=== PATIENT | female | born 1985 | race Caucasian/White ===

== ENCOUNTER → 2020-03-13 10:49 | Outpatient (CLI) | payer OTHER, SELFPAY ==
[2020-03-13 10:49] VITALS: BMI 30.1
[2020-03-13 11:47] LABS: Amphetamine Urine VISTA NEGATIVE (<1000 ng/mL); Barbiturate Urine VISTA NEGATIVE (< 200 ng/mL); Benzodiazepine Urine VISTA NEGATIVE (< 200 ng/mL); Cocaine Urine VISTA NEGATIVE (< 300 ng/mL); Ecstacy Urine VISTA NEGATIVE (< 500 ng/mL); Methadone Urine VISTA NEGATIVE (< 300 ng/mL); PCP Urine VISTA NEGATIVE (< 25 ng/mL); THC Urine VISTA NEGATIVE (< 50 ng/mL); Vista UDS pH Range 6
[2020-03-13 12:41] LABS: Hepatitis C Antibody Non-Reactive (Nonreactive)
[2020-03-13 13:19] LABS: Chlamydia Trachomatis by PCR Negative (Negative); Neisserai gonorrhoeae by PCR Negative (Negative); Probe Check PASS; Sample Adequacy Control PASS; Specimen Processing Control PASS
== END ==
PROVIDERS: Obstetrics & Gynecology; Referring Provider Nurse Practitioner Women's Health; Visit Provider Nurse Practitioner Women's Health
DX: O09.00 Supervision of pregnancy with history of infertility, unspecified trimester (principal); Z3A.00 Weeks of gestation of pregnancy not specified; Z78.9 Other specified health status
CPT/HCPCS: 36415; 80307; 86803; 86850; 86900; 86901; 87086; 87088; 87491; 87591

== ENCOUNTER → 2020-05-15 10:08 | Outpatient (CLI) | payer OTHER, SELFPAY ==
[2020-05-02 09:10] VITALS: BMI 31.7
[2020-05-21 03:06] LABS: QNTFERON TB Mitogen Value > 10.00 IU/mL (.); QNTFERON TB Nil Value 0.05 IU/mL (.); QNTFERON TB1+ Ag Value 0.05 IU/mL (.); QNTFERON TB2+ Ag Value 0.05 IU/mL (.)
[2020-05-21 15:04] LABS: QNTIFERON TB Positive Criteria Negative (Negative)
== END ==
PROVIDERS: Referring Provider Obstetrics & Gynecology; Visit Provider Obstetrics & Gynecology
DX: Z02.1 Encounter for pre-employment examination (principal)
CPT/HCPCS: 36415; 86480

== ENCOUNTER → 2020-05-30 12:49 | Outpatient (CLI) | payer OTHER, SELFPAY ==
[2020-05-02 09:10] VITALS: BMI 31.7
[2020-05-30 13:14] LABS: Absolute Lymphocyte Count 1.88 X10^3/uL (0.83-4.51); Absolute Neutrophil Count 6.2 X10^3/uL (2.0-7.7); Basophil# 0.02 X10^3/uL; Basophil% 0.2 % (0-1); Eosinophil# 0.06 X10^3/uL; Eosinophils% 0.7 % (0-5); Hematocrit 34.4 % (37-47); Hemoglobin 11.2 g/dL (12.0-15.0); Lymphocyte # 1.88 X10^3/ul (4.0); Lymphocyte % 21.4 % (19-41); Mean Corp Hgb Conc 32.6 g/dL (32-36); Mean Corpuscular Hgb 30.3 pg (27.0-32.0); Monocyte# 0.56 X10^3/uL; Monocyte% 6.4 % (0-10); NRBC Flagged by Analyzer 0 % (0-5); Neutrophil # 6.18 X10^3/uL (2.7-7.7); Neutrophil % 70.2 % (47-70); Platelet Count 248 K/mm3 (150-450); RBC Distribution Width CV 12.6 % (11.6-14.6); RBC Distribution Width SD 42.9 fl (35.1-43.9); White Blood Count 8.8 K/mm3 (4.4-11.0)
[2020-05-30 13:24] LABS: Glucose Challenge Gest 1H 50g 105 mg/dL (70-140)
== END ==
PROVIDERS: Referring Provider Obstetrics & Gynecology; Visit Provider Obstetrics & Gynecology
DX: Z34.90 Encounter for supervision of normal pregnancy, unspecified, unspecified trimester (principal); Z13.1 Encounter for screening for diabetes mellitus
CPT/HCPCS: 36415; 82950; 85025

== ENCOUNTER → 2020-06-04 08:39 | Outpatient (CLI) | payer OTHER, SELFPAY ==
[2020-06-04 08:19] VITALS: BMI 32.4
[2020-06-04 08:50] LABS: Absolute Neutrophil Count 5.6 X10^3/uL (2.0-7.7); Basophil# 0.04 X10^3/uL; Basophil% 0.5 % (0-1); Eosinophil# 0.12 X10^3/uL; Eosinophils% 1.5 % (0-5); Hematocrit 34.9 % (37-47); Hemoglobin 11.2 g/dL (12.0-15.0); Lymphocyte % 21.1 % (19-41); Mean Corp Hgb Conc 32.1 g/dL (32-36); Mean Corpuscular Hgb 29.8 pg (27.0-32.0); Mean Corpuscular Volume 92.8 fL (81-99); Mean Platelet Vol. 9.7 fl (6.2-12.0); Monocyte# 0.52 X10^3/uL; Monocyte% 6.4 % (0-10); NRBC Flagged by Analyzer 0 % (0-5); Neutrophil # 5.61 X10^3/uL (2.7-7.7); Neutrophil % 69.5 % (47-70); Platelet Count 225 K/mm3 (150-450); RBC Distribution Width CV 12.6 % (11.6-14.6); RBC Distribution Width SD 42.6 fl (35.1-43.9); Red Blood Count 3.76 M/mm3 (4.2-5.4); White Blood Count 8.1 K/mm3 (4.4-11.0)
[2020-06-04 09:02] LABS: Fibrinogen 465 mg/dl (203-444)
== END ==
PROVIDERS: Referring Provider Obstetrics & Gynecology; Visit Provider Obstetrics & Gynecology
DX: O46.90 Antepartum hemorrhage, unspecified, unspecified trimester (principal); Z3A.00 Weeks of gestation of pregnancy not specified
CPT/HCPCS: 36415; 85025; 85384

== ENCOUNTER 2020-07-10 17:06 | Emergency (ER) | payer OTHER, SELFPAY ==
[2020-06-27 10:56] VITALS: BMI 46.5
[2020-07-10 17:07] VITALS: BP 141/87; PULSE 126; RESP 15; TEMP 37; O2SAT 97; BMI 34.5
--- NOTE | 2020-07-10 17:28 | EDS_ITS ---
HPI History of Present Illness Chief Complaint: Edema Informant: patient Narrative Narrative: Patient presents with right leg swelling. Started today. She noted some swelling down into the lower leg into the foot. She denies any redness, fever or pain. She is 34 weeks gestation. 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 She has no history of DVT or PE. She is complaining of no chest pain or shortness of breath. [facility] Medical History Anxiety Infertility Home Medications vit 67-iron ps 29 mg iron-folate no.1 1 mg-dha 200 mg capsule 1 cap PO DAILY #30 cap 05/02/20 [Rx Last Taken Unknown] breast pump #1 each 05/30/20 [Rx Last Taken Unknown] miscellaneous medical supply #1 each 05/30/20 [Rx Last Taken Unknown] Allergy/AdvReac Type Severity Reaction Status Date / Time No Known Allergies Allergy Verified 06/27/20 10:56 Family History Grandmother Colon cancer Heart disease Grandfather Cancer non hodgkins lymphoma Surgical History Hx of appendectomy Social History Smoking Status: Never smoker alcohol intake: never substance use type: does not use caffeine: Yes what type of physical activity do you participate in: walking frequency: 5-6 times per week seatbelt use: always do you feel safe at home: Yes 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 Constitutional ED: Denies chills or fever(s) Eyes Eyes: Denies blurry vision or change in vision ENT ENT ED: Denies ear pain, rhinorrhea or sore throat Cardiovascular Cardiovascular: Denies chest pain or palpitations Respiratory/Chest Respiratory/Chest: Denies cough, dyspnea or sputum Gastrointestinal Gastrointestinal: Denies abdominal pain, diarrhea, nausea or vomiting Genitourinary Genitourinary ED: Denies dysuria, hematuria or urinary frequency Musculoskeletal Musculoskeletal: Reports other Details: Right leg swelling Integumentary Denies change in pigmentation or rash Neurologic Neurologic: Denies headache(s), numbness or weakness Psychiatric Psychiatric: Denies anxiety or depression Endocrine Endocrinology: Denies polydipsia or polyuria EXAM Physical Exam Const Vital Signs: 07/10/20 17:07 Temperature 98.6 F Temperature Source Temporal Pulse Rate 126 H Respiratory Rate 15 Blood Pressure 141/87 H Blood Pressure Mean 105 Pulse Ox 97 Oxygen Delivery Method Room Air Positive well nourished and well developed General Appearance ED: well developed HEENT normocephalic and atraumatic Eyes PERRL Neck full ROM GI GI Narrative: Abdomen is gravid according to dates. Extremity normal to inspection Extremity Narrative: Mild edema to the right lower leg into the foot. There is no erythema. There is no warmth to the touch. She has 2+ bilateral DP pulses. General Extremety ED: Yes edema General Extremity: edema Neuro oriented x3, CN's II-XII intact bilaterally and moves all extremities Sensorium / Orientation: alert Motor Exam: strength 5/5 throughout Psych mental status grossly normal Skin Lesions: no lesions Rashes: no rashes MDM MDM MDM Narrative Medical decision making narrative: Duplex ultrasound is negative for DVT. There are no signs of infection on the leg. I do not feel she requires any antibiotics. She will keep an eye on her leg swelling and will follow up with her [employer]. Radiography Diagnostic Testing: Radiology Impression Venous Duplex 07/10/20 17:31 IMPRESSION: Normal venous Doppler ultrasound of the lower extremity. Electronically Signed: Tristan Price DO at 18:28 EDT Tel [phone], Service support , Discharge Plan Triage Chief Complaint: Edema ED Provider: Zion Osorio Dx/Rx/DC Orders Clinical Impression: Right leg swelling Instructions: ED Peripheral Edema, Unilateral Prescriptions: No Action vit 67-iron ps 29 mg iron-folate no.1 1 mg-dha 200 mg capsule 29 mg iron- 1 mg-200 mg capsule 1 cap PO DAILY Qty: 30 RF: 6 (DME) breast pump Device See Rx Instructions .ROUTE .MEDSUPPLY Qty: 1 RF: 0 (DME) miscellaneous medical supply Misc See Rx Instructions .ROUTE .MEDSUPPLY Qty: 1 RF: 0 Primary Care Provider: Care Physician,No Primary Referrals: Alycia Ennis MD [STAFF PHYSICIAN] - Care Physician,No Primary [Primary Care Provider] - Disposition Disposition: Home, self care
--- NOTE | 2020-07-10 17:31 | US_ITS ---
STUDY: VENOUS DOPPLER ULTRASOUND - RIGHT LOWER EXTREMITY REASON FOR EXAM: Female, 34 years old. RT FOOT SWELLING X 2 HOURS 34 WEEKS TECHNIQUE: Ultrasound evaluation of the deep vein system to include aguilar-scale imaging and compression was performed. Aguilar-scale imaging and Doppler sonographic evaluation, including duplex spectral analysis and qualitative color flow sonography, was performed. COMPARISON: None. FINDINGS: Common Femoral Vein: Normal compression, spontaneity and augmentation. Normal color Doppler. Common Femoral Vein/Greater Saphenous Junction: Normal compression. Femoral Proximal: Normal compression. Femoral Middle: Normal compression, spontaneity and augmentation. Normal color Doppler. Femoral Distal: Normal compression. Popliteal Vein: Normal compression, spontaneity and augmentation. Normal color Doppler. Posterior Tibial Vein: Normal compression. Peroneal Vein: Normal compression. US/Venous Duplex Imag/Limited/Uni IMPRESSION: Normal venous Doppler ultrasound of the lower extremity. Electronically Signed: Tristan Price DO at 18:28 EDT Tel [phone], Service support ,
== END 2020-07-10 19:07 | disposition home or self-care (01) ==
PROVIDERS: Emergency Provider Emergency Medicine
DX: O26.893 Other specified pregnancy related conditions, third trimester (principal); R60.0 Localized edema; Z3A.34 34 weeks gestation of pregnancy
CPT/HCPCS: 93971; 99282

== ENCOUNTER 2020-07-23 19:15 | Emergency (ER) | payer OTHER, SELFPAY ==
[2020-07-11 11:41] VITALS: BMI 34.7
[2020-07-23 19:16] VITALS: BP 129/81; PULSE 105; RESP 18; TEMP 36.1; O2SAT 98; BMI 34.7
--- NOTE | 2020-07-23 19:37 | US_ITS ---
STUDY: VENOUS DOPPLER ULTRASOUND - RIGHT LOWER EXTREMITY REASON FOR EXAM: Female, 34 years old. RT CALF PAIN WHEN STANDING AND CALF AND FOOT SWELLING- 36 WEEKS TECHNIQUE: Ultrasound evaluation of the deep vein system to include aguilar-scale imaging and compression was performed. Aguilar-scale imaging and Doppler sonographic evaluation, including duplex spectral analysis and qualitative color flow sonography, was performed. COMPARISON: None. FINDINGS: Common Femoral Vein: Normal compression with slow venous flow. Common Femoral Vein/Greater Saphenous Junction: Normal compression. Femoral Proximal: Normal compression. Femoral Middle: Normal compression, spontaneity and augmentation. Normal color Doppler. Femoral Distal: Normal compression. Popliteal Vein: Normal compression, spontaneity and augmentation. Normal color Doppler. Posterior Tibial Vein: Normal compression. Peroneal Vein: Normal compression. US/Venous Duplex Imag/Limited/Uni IMPRESSION: No deep venous thrombosis of the lower extremity. Slow flow is noted in the right common femoral vein. Electronically Signed: Tristan Price DO at 21:30 EDT Tel [phone], Service support ,
--- NOTE | 2020-07-23 19:40 | EX.ED.DYSGE1 ---
HPI History of Present Illness Chief Complaint: Lower Extremity Injury Informant: patient Narrative Narrative: 34-year-old female presents with right lower extremity swelling. She states that this has been ongoing for the past couple of weeks. She had an ultrasound approximately 2 weeks ago which showed no DVT at that time. She was advised to watch for increasing pain. She states she had more calf tenderness today. She denies fever. Denies chest pain. Denies other complaints. She is 36 weeks . Denies abdominal or pelvic cramping. Denies vaginal bleeding. PFSH [facility] Medical History Anxiety Infertility Home Medications vit 67-iron ps 29 mg iron-folate no.1 1 mg-dha 200 mg capsule 1 cap PO DAILY #30 cap 05/02/20 [Rx Last Taken Unknown] breast pump #1 each 05/30/20 [Rx Last Taken Unknown] miscellaneous medical supply #1 each 05/30/20 [Rx Last Taken Unknown] Allergy/AdvReac Type Severity Reaction Status Date / Time No Known Allergies Allergy Verified 07/11/20 11:39 Family History Grandmother Colon cancer Heart disease Grandfather Cancer non hodgkins lymphoma Surgical History Hx of appendectomy Social History Smoking Status: Never smoker alcohol intake: never substance use type: does not use caffeine: Yes what type of physical activity do you participate in: walking frequency: 5-6 times per week seatbelt use: always do you feel safe at home: Yes 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: Denies fever(s) Eyes Eyes: Denies change in vision ENT ENT ED: Denies rhinorrhea or sore throat Cardiovascular Cardiovascular: Denies chest pain or palpitations Respiratory/Chest Respiratory/Chest: Denies cough or dyspnea Gastrointestinal Gastrointestinal: Denies abdominal pain, diarrhea, nausea or vomiting Genitourinary Genitourinary ED: Denies dysuria Musculoskeletal Musculoskeletal: Reports other Details: Right lower extremity swelling and calf tenderness Integumentary Denies rash Neurologic Neurologic: Denies headache(s) Psychiatric Psychiatric: Denies suicidal thoughts EXAM Physical Exam Const Vital Signs: 07/23/20 19:16 Temperature 97 F L Temperature Source Temporal Pulse Rate 105 H Respiratory Rate 18 Blood Pressure 129/81 H Blood Pressure Mean 97 Pulse Ox 98 Oxygen Delivery Method Room Air Positive well nourished and well developed General Appearance ED: well developed HEENT Reports normocephalic and head/scalp atraumatic Eyes PERRL and EOMs intact bilaterally Neck supple General: Negative for tenderness Chest Wall inspection of chest normal Resp normal respiratory effort and clear to auscultation bilaterally Cardio regular rate and regular rhythm no CVA tenderness Extremity Extremity Narrative: Mild swelling right lower extremity with mild calf tenderness. Normal distal pulses. Neuro oriented x3 Sensorium / Orientation: alert Psych mental status grossly normal MDM MDM MDM Narrative Medical decision making narrative: Right lower extremity venous Doppler shows no DVT of the lower extremity. Slow flow is noted in the right common femoral vein. heart tones 125. Patient is resting comfortably. Discussed with [place] salesperson jewelry for Dr. Ennis. Patient will follow up in the office. She is advised to return to ED if worsening complaints. Radiography Diagnostic Testing: Radiology Impression Venous Duplex 07/23/20 19:37 IMPRESSION: No deep venous thrombosis of the lower extremity. Slow flow is noted in the right common femoral vein. Electronically Signed: Tristan Price DO at 21:30 EDT Tel [phone], Service support , Discharge Plan Triage Chief Complaint: Lower Extremity Injury ED Provider: Dede Conley Dx/Rx/DC Orders Clinical Impression: Edema, peripheral Instructions: ED Peripheral Edema, Unilateral Prescriptions: No Action vit 67-iron ps 29 mg iron-folate no.1 1 mg-dha 200 mg capsule 29 mg iron- 1 mg-200 mg capsule 1 cap PO DAILY Qty: 30 RF: 6 (DME) breast pump Device See Rx Instructions .ROUTE .MEDSUPPLY Qty: 1 RF: 0 (DME) miscellaneous medical supply Misc See Rx Instructions .ROUTE .MEDSUPPLY Qty: 1 RF: 0 Primary Care Provider: Care Physician,No Primary Referrals: Alycia Ennis MD [STAFF PHYSICIAN] - Care Physician,No Primary [Primary Care Provider] - Disposition Disposition: Home, self care
== END 2020-07-23 22:43 | disposition home or self-care (01) ==
PROVIDERS: Emergency Provider Emergency Medicine
DX: O26.893 Other specified pregnancy related conditions, third trimester (principal); R60.0 Localized edema; Z3A.36 36 weeks gestation of pregnancy
CPT/HCPCS: 93971; 99282

== ENCOUNTER → 2020-07-25 | Outpatient (CLI) | payer OTHER, SELFPAY ==
[2020-07-25 13:53] VITALS: BMI 35.3
== END | disposition home or self-care (01) ==
LOC: LABSPEC 16:31
PROVIDERS: Referring Provider Obstetrics & Gynecology; Visit Provider Obstetrics & Gynecology
DX: O09.00 Supervision of pregnancy with history of infertility, unspecified trimester (principal); Z3A.00 Weeks of gestation of pregnancy not specified
CPT/HCPCS: 87081

== ENCOUNTER → 2020-08-07 11:04 | Outpatient (CLI) | payer OTHER, SELFPAY ==
[2020-08-07 10:29] VITALS: BMI 35.3
[2020-08-07 11:24] LABS: Absolute Lymphocyte Count 1.73 X10^3/uL (0.83-4.51); Absolute Neutrophil Count 5.2 X10^3/uL (2.0-7.7); Basophil# 0.01 X10^3/uL; Basophil% 0.1 % (0-1); Eosinophil# 0.07 X10^3/uL; Eosinophils% 0.9 % (0-5); Hematocrit 33.8 % (37-47); Hemoglobin 10.7 g/dL (12.0-15.0); Lymphocyte # 1.73 X10^3/ul (0.83-4.51); Lymphocyte % 22.4 % (19-41); Mean Corp Hgb Conc 31.7 g/dL (32-36); Mean Corpuscular Hgb 27.4 pg (27.0-32.0); Mean Corpuscular Volume 86.4 fL (81-99); Mean Platelet Vol. 10.9 fl (6.2-12.0); Monocyte# 0.63 X10^3/uL; Monocyte% 8.2 % (0-10); NRBC Flagged by Analyzer 0 % (0-5); Neutrophil # 5.23 X10^3/uL (2.7-7.7); Neutrophil % 67.9 % (47-70); Platelet Count 236 K/mm3 (150-450); RBC Distribution Width CV 14.2 % (11.6-14.6); RBC Distribution Width SD 44.3 fl (35.1-43.9); Red Blood Count 3.91 M/mm3 (4.2-5.4); White Blood Count 7.7 K/mm3 (4.4-11.0)
[2020-08-07 11:42] LABS: ALB/GLOB Ratio 0.6 RATIO (0.9-2.4); AST(SGOT) 23 U/L (15-37); Alanine Aminotransfer ALT/SGPT 22 U/L (13-56); Albumin, Serum 2.5 g/dL (3.2-5.0); Alkaline Phosphatase 154 U/L (45-117); Anion Gap 9 (5-15); BUN 8 mg/dL (7-18); BUN/Creat Ratio 12.8 RATIO (10-20); Calcium,Total 9.5 mg/dL (8.5-10.1); Chloride 107 mmol/L (98-107); Creatinine, Serum 0.63 mg/dL (0.55-1.02); EST Glomerular Filtration Rate 115 mL/min (>60); Est Glom Filt Rate - Afr Amer 140 mL/min (>60); Globulin 4.2 g/dL (2.2-4.2); Glucose 83 mg/dL (74-106); Potassium 3.6 mmol/L (3.5-5.1); Protein, Total 6.7 g/dL (6.4-8.2); Sodium Level 138 mmol/L (136-145)
[2020-08-07 11:46] LABS: Protein, Urine (Random) 7.3 mg/dL (<11.9); Protein:Creat Ratio 221 mg/g CRE (0-200)
== END ==
PROVIDERS: Referring Provider Obstetrics & Gynecology; Visit Provider Obstetrics & Gynecology
DX: O09.00 Supervision of pregnancy with history of infertility, unspecified trimester (principal); Z3A.00 Weeks of gestation of pregnancy not specified
CPT/HCPCS: 36415; 80053; 82570; 84156; 85025

== ENCOUNTER → 2020-08-21 13:54 | Outpatient (CLI) | payer OTHER, SELFPAY ==
[2020-08-07 10:29] VITALS: BMI 35.3
[2020-08-21 08:57] VITALS: BMI 35.3
== END ==
PROVIDERS: Visit Provider Obstetrics & Gynecology
DX: O09.00 Supervision of pregnancy with history of infertility, unspecified trimester (principal); Z3A.00 Weeks of gestation of pregnancy not specified
CPT/HCPCS: 87635; C9803; U0005; U0003

== ENCOUNTER 2020-08-21 21:30 | Inpatient (IN) | payer OTHER, SELFPAY ==
[2020-08-21] VITALS (9 sets, daily range): BP systolic 109–141; BP diastolic 64–91; PULSE 89–114; TEMP 36.8–37.3; O2SAT 98–99; BMI 35.3; BMI 35.8
[2020-08-21 21:26] LABS: ROM Internal Control Test YES-OK TO RESULT pt. (Internal QC)
[2020-08-21 21:28] LABS: ROM Patient Test POSITIVE (Negative)
[2020-08-21 22:08] LABS: Absolute Lymphocyte Count 1.89 X10^3/uL (0.83-4.51); Absolute Neutrophil Count 5.4 X10^3/uL (2.0-7.7); Basophil# 0.02 X10^3/uL; Basophil% 0.2 % (0-1); Eosinophil# 0.07 X10^3/uL; Eosinophils% 0.9 % (0-5); Hematocrit 32.9 % (37-47); Hemoglobin 10.5 g/dL (12.0-15.0); Lymphocyte # 1.89 X10^3/ul (0.83-4.51); Lymphocyte % 23.3 % (19-41); Mean Corp Hgb Conc 31.9 g/dL (32-36); Mean Corpuscular Hgb 27.1 pg (27.0-32.0); Mean Corpuscular Volume 84.8 fL (81-99); Mean Platelet Vol. 10.4 fl (6.2-12.0); Monocyte% 8.6 % (0-10); NRBC Flagged by Analyzer 0 % (0-5); Neutrophil # 5.37 X10^3/uL (2.7-7.7); Neutrophil % 66.3 % (47-70); Platelet Count 213 K/mm3 (150-450); RBC Distribution Width CV 14.6 % (11.6-14.6); RBC Distribution Width SD 45.1 fl (35.1-43.9); Red Blood Count 3.88 M/mm3 (4.2-5.4); White Blood Count 8.1 K/mm3 (4.4-11.0)
[2020-08-21 22:24] LABS: AST(SGOT) 18 U/L (15-37); Alanine Aminotransfer ALT/SGPT 19 U/L (13-56); Creatinine, Serum 0.68 mg/dL (0.55-1.02); EST Glomerular Filtration Rate 105 mL/min (>60); Est Glom Filt Rate - Afr Amer 127 mL/min (>60); Estimated Creatinine Clearance 96.43 ml/min; Protein, Urine (Random) 58.7 mg/dL (<11.9); Protein:Creat Ratio 2339 mg/g CRE (0-200); Uric Acid 4.2 mg/dL (2.6-6.0)
[2020-08-21] MEDS: miSOPROStol 25 MCG TABLET PO (22:41)
[2020-08-21] MEDS: Mag Hydrox/Al Hydrox/Simeth 30 ML UDC PO (22:41)
[2020-08-22] VITALS (71 sets, daily range): BP systolic 95–158; BP diastolic 54–101; PULSE 89–155; TEMP 29.2–37.3; O2SAT 97–100
[2020-08-22] MEDS: miSOPROStol 25 MCG TABLET PO (03:01)
[2020-08-22] MEDS: 0.9% Normal Saline Single 100 ML IV.SOLN. INTRA-UTER (07:50)
--- NOTE | 2020-08-22 08:48 | HP.PCM.OB_ITS ---
HPI - General General Date of Admission: 08/21/20 HPI Narrative JENARO KASPER, is a 34 F at 40 weeks 1 day who presents for rupture of membranes. Maternal Data Information STEVEN Calculator Estimated Delivery Date Method Current WG Current Estimate 08/21/20 Manual 40w 1d PFSH PFSH Medical History Anxiety Infertility Home Medications vit 67-iron ps 29 mg iron-folate no.1 1 mg-dha 200 mg capsule 1 cap PO DAILY #30 cap 05/02/20 [Rx Last Taken 08/21/20] breast pump #1 each 05/30/20 [Rx Last Taken Unknown] miscellaneous medical supply #1 each 05/30/20 [Rx Last Taken Unknown] Allergy/AdvReac Type Severity Reaction Status Date / Time No Known Allergies Allergy Verified 08/21/20 20:43 Family History Grandmother Colon cancer Heart disease Grandfather Cancer non hodgkins lymphoma Surgical History Hx of appendectomy Social History Smoking Status: Never smoker alcohol intake: never substance use type: does not use caffeine: Yes what type of physical activity do you participate in: walking frequency: 5-6 times per week seatbelt use: always do you feel safe at home: Yes 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 Elective abortions Hx Para 0 Spontaneous abortions Hx # Term Pregnancies Ectopic pregnancies Hx # Pregnancies Multiple births # of living children Visit Details Expected Delivery Route/Plan by 41w Labor Preferences- CB/BF classes: yes labor support person: Noé labor intervention preferences: minimal intervention, only vitamin K shot for baby meds, allow water to break naturally, not push on back pain management options preferred: undecided; taking hypnobabies class cut cord/dad catch: maybe cord : yes PP control planned: [] discussed possible routes of delivery and associated risks: discussed possible delivery modalities and possible indications for each including R/B/A of , VAVD, FAVD, and CS. questions answered. prefers to avoid forceps if possible special requests: [] Plans flu vaccine: considering tdap vaccine: yes rhogam: na LARC form signed: yes movement and labor precautions reviewed. Problem list reviewed and updated with the most current plan of care details and appropriate orders placed. Relevant counseling for the gestational age provided. Continue routine care and follow up unless otherwise noted in visit not es/problem list details OB Flowsheet Initial Weight: 165 lb Date -?-?-?-?-?-?-?-?-?-?-?-?- EGA Weight BP Urine Prot -?-?-?-?-?-?-?-?-?-?-?-?- Glucose FHR FuHt Pres Dilation -?-?-?-?-?-?-?-?-?-?-?-?- Effaced St Visit Note 02/06/20 -?-?-?-?-?-?-?-?-?-?-?-?- 11w 6d 170 lb (+5 lb) -?-?-?-?-?-?-?-?-?-?-?-?- 150 -?-?-?-?-?-?-?-?-?-?-?-?- SM- no vb crampi ng NEHEMIAS from I 03/06/20 -?-?-?-?-?-?-?-?-?-?-?-?- 16w 0d 172 lb 8 oz (+7 lb 8 oz) 118/80 Negative -?-?-?-?-?-?-?-?-?-?-?-?- Negative 150 -?-?-?-?-?-?-?-?-?-?-?-?- GP - no cramping or bleeding. Anatomy scan ordered. 04/04/20 -?-?-?-?-?-?-?-?-?-?-?-?- 20w 1d 180 lb (+15 lb) 104/62 -?-?-?-?-?-?-?-?-?-?-?-?- 150 -?-?--?-?-?-?-?-?-?-?-?-?- SM- no vb crampi ng anatomy us. 04/16/20 -?-?-?-?-?-?-?-?-?-?-?-?- 21w 6d 181 lb (+16 lb) 110/70 Negative -?-?-?-?-?-?-?-?-?-?-?-?- Negative 152 -?-?-?-?-?-?-?-?-?-?-?-?- -work in [employer]. Tearful. Struggles with anxiety, see therapist, meditates. Declines RX now. Given info waiting on baby bird and connect with another IVF mom. Supported ok to not feel happy every day with any . Will call if wants Rx 05/02/20 -?-?-?-?-?-?-?-?-?-?-?-?- 24w 1d 185 lb (+20 lb) 104/82 -?-?-?-?-?-?-?-?-?-?-?-?- 140 24 -?-?-?-?-?-?-?-?-?-?-?-?- GP - no cramping , LOF, VB, DFM. Discussed CB classes. Planning to do hypnobirth classes. 05/30/20 -?-?-?-?-?-?-?-?-?-?-?-?- 28w 1d 187 lb 2 oz (+22 lb 2 oz) 116/68 Negative -?-?-?-?-?-?-?-?-?-?-?-?- Negative 157 28 -?-?-?-?-?-?-?-?-?-?-?-?- -No VB,LOF. G ood FM. 28 wk labs WNL, tdap, LARC. 06/04/20 -?-?--?-?-?-?-?-?-?-?-?-?- 28w 6d 189 lb (+24 lb) 122/82 -?-?-?-?-?-?-?-?-?-?-?-?- 150 30 0 -?-?-?-?-?-?-?-?-?-?-?-?- SM- no lof good fm co spotting last night after physical activity, seen today and brown discharge, bedside US WNL and cbc fibrinogen ordered 06/13/20 -?-?-?-?-?-?-?-?-?-?-?-?- 30w 1d 190 lb 4 oz (+25 lb 4 oz) 128/70 Negative -?-?-?-?-?-?-?-?-?-?-?-?- Negative 130 30 -?-?-?-?-?-?-?-?-?-?-?-?- GP - no LOF, VB, DFM, ctx. No further bleeding - restrictions lifted. 06/18/20 -?-?-?-?-?-?-?-?-?-?-?-?- 30w 6d 191 lb (+26 lb) 124/80 Negative -?--?-?-?-?-?-?-?-?-?-?-?- Negative 142 -?-?-?-?-?-?-?-?-?-?-?-?- -work in for v aginal bleeding/brown in color. Exam notes brown mucoid DC in vault. Cervix thick and closed. Good FM. No CTX. Consult SM:will arrange MFM US this week. Bleeding precautions reviewed. 06/27/20 -?-?-?-?-?-?-?-?-?-?-?-?- 32w 1d 193 lb (+28 lb) 110/80 Negative -?-?-?-?-?-?-?-?-?-?-?-?- Negative 145 32 -?-?-?-?-?-?-?-?-?-?-?-?- SM- no vb since last week and evaluation. 07/11/20 -?-?-?-?-?-?-?-?-?-?-?-?- 34w 1d 196 lb 6 oz (+31 lb 6 oz) 130/80 Negative -?-?-?-?-?-?-?-?-?-?-?-?- Negative 145 34 -?-?-?-?-?-?-?-?-?-?-?-?- GP - no LOF, VB, DFM, ctx. seen in ER last night for swelling - LE dopplers negative. Reviewed labor preferences and routes of delivery. 07/25/20 -?-?-?-?-?-?-?-?-?-?-?-?- 36w 1d 199 lb 6 oz (+34 lb 6 oz) 130/88 Negative -?-?-?-?-?-?-?-?-?-?-?-?- Negative 135 36 Cephalic -?-?-?-?-?-?-?-?-?-?-?-?- GP - no LOF, VB, DFM, ctx. Seen in ER again for RLE swelling, but DVT and PE ruled out. GBS today. Confirmed vtx on US. 08/01/20 -?-?-?-?-?-?-?-?-?-?-?-?- 37w 1d 201 lb (+36 lb) 108/67 Negative -?-?-?-?-?-?-?-?-?-?-?-?- Negative 135 37 Cephalic -?-?-?-?-?-?-?-?-?-?-?-?- SM- no vb lof go od fm no regular ct SM- no vb lof good fm no reg ular ctx 08/07/20 -?-?-?-?-?-?-?-?-?-?-?-?- 38w 0d 202 lb 4 oz (+37 lb 4 oz) 122/90 Negative -?-?-?-?-?-?-?-?-?-?-?-?- Negative 145 38 Cephalic -?-?-?-?-?-?-?-?-?-?-?-?- GP - no LOF, VB, DFM, ctx. BP mildly elevated - outpatient labs done, will see for BP check on Wednesday. 08/09/20 -?-?-?-?-?-?-?-?-?-?-?-?- 38w 2d 204 lb (+39 lb) 112/82 Negative -?-?-?-?-?-?-?-?-?-?-?-?- Negative -?-?-?-?-?-?-?-?-?-?-?-?- 08/15/20 -?-?-?-?-?-?-?-?-?-?-?-?- 39w 1d 201 lb 4 oz (+36 lb 4 oz) 138/90 Negative -?-?-?-?-?-?-?-?-?-?-?-?- Negative 140 39 Cephalic -?-?-?-?-?-?-?-?-?-?-?-?- GP - no LOF, VB, DFM, regular ctx. BP mildly elevated but has been nl at home and patient asymptomatic. Will continue to monitor at home. 08/21/20 -?-?-?-?-?-?-?-?-?-?-?-?- 40w 0d 202 lb 4 oz (+37 lb 4 oz) 120/82 Negative -?-?-?-?-?-?-?-?-?-?-?-?- Negative 130 40 Cephalic 0 -?-?-?-?-?-?-?-?-?-?-?-?- 50 -2 GP - no LO F, VB, DFM, ctx. Discussed IOL. Plan for induction Wednesday evening. 08/21/20 -?-?-?-?-?-?-?-?-?-?-?-?- 40w 0d 202 lb 3.2 oz (+37 lb 3.2 oz) 141/91 137/81 121/69 109/65 112/64 134/86 126/81 117/70 142/76 128/79 126/78 127/82 -?-?-?-?-?-?-?-?-?-?-?-?- -?-?-?-?-?-?-?-?-?-?-?-?- NST FHR Rate Baby A Baseline: 140 Variability:: Moderate Accelerations:: 15 x 15 Decelerations:: None NST Reactive:: Yes FHR Category:: Category I Uterine Activity:: Irritability ROS Eyes Eyes: Reports systems reviewed and no addt'l complaints, except as documented ENT HEENT: Reports systems reviewed and no addt'l complaints, except as documented Cardiovascular Cardiovascular: Reports systems reviewed and no addt'l complaints, except as documented Respiratory/Chest Respiratory/Chest: Reports systems reviewed and no addt'l complaints, except as documented Gastrointestinal Gastrointestinal: Reports systems reviewed and no addt'l complaints, except as documented Genitourinary Genitourinary: Reports systems reviewed and no addt'l complaints, except as documented Musculoskeletal Musculoskeletal: Reports systems reviewed and no addt'l complaints, except as documented Integumentary Integumentary: Reports systems reviewed and no addt'l complaints, except as documented Neurologic Neurologic: Reports systems reviewed and no addt'l complaints, except as documented Psychiatric Psychiatric: Reports systems reviewed and no addt'l complaints, except as documented Endocrine Endocrinology: Reports systems reviewed and no addt'l complaints, except as documented Hematologic/Lymphatic Hematologic/Lymphatic: Reports systems reviewed and no addt'l complaints, except as documented Allergic/Immunologic Allergic/Immunologic: Reports systems reviewed and no addt'l complaints, except as documented Vital Signs Vital Signs Vital Signs: 08/21/20 20:28 08/21/20 20:29 08/21/20 20:31 Temperature 99.0 F Temperature Source Pulse Rate 114 H 101 H Blood Pressure 141/91 H BP Systolic 141 BP Diastolic 91 Pulse Ox 99 08/21/20 20:47 08/21/20 21:02 08/21/20 21:17 Temperature Temperature Source Pulse Rate 95 94 90 Blood Pressure 137/81 H 121/69 H 109/65 BP Systolic 137 121 109 BP Diastolic 81 69 65 Pulse Ox 08/21/20 21:50 08/21/20 22:54 08/21/20 23:45 Temperature 98.2 F 99.1 F 98.8 F Temperature Source Temporal Temporal Pulse Rate 93 105 H 89 Blood Pressure 112/64 134/86 H 126/81 H BP Systolic 112 134 126 BP Diastolic 64 86 81 Pulse Ox 98 08/22/20 01:15 08/22/20 01:16 08/22/20 02:59 Temperature 97.9 F Temperature Source Temporal Pulse Rate 90 91 96 Blood Pressure 117/70 142/76 H BP Systolic 117 142 BP Diastolic 70 76 Pulse Ox 100 08/22/20 03:00 08/22/20 04:34 08/22/20 04:35 Temperature 97.7 F L 98.1 F Temperature Source Temporal Temporal Pulse Rate 93 Blood Pressure 128/79 H BP Systolic 128 BP Diastolic 79 Pulse Ox 08/22/20 07:18 08/22/20 07:19 08/22/20 08:19 Temperature 98.4 F 98.4 F 98.2 F Temperature Source Temporal Temporal Pulse Rate 101 H 96 Blood Pressure 126/78 H 127/82 H BP Systolic 126 127 BP Diastolic 78 82 Pulse Ox 99 100 Weight Weight: 202 lb 3.2 oz Body Mass Index (BMI) 35.8 Physical Exam Const alert, oriented x3, no apparent distress, average body habitus, healthy appearing and well nourished HEENT normocephalic and moist oral mucous membranes Head and Scalp: atraumatic Eyes PERRL and EOMs intact bilaterally Neck full ROM Resp normal respiratory effort, no retractions and no use of accessory muscles Cardio regular rate and regular rhythm GI soft to palpation, non-tender and non-distended Extremity normal to inspection and full ROM Skin no rashes or lesions noted Neuro no focal motor deficits and no sensory deficits noted Psych mental status grossly normal, affect normal, speech normal and activity/motor behavior normal Labs Labs Labs: Blood Type A POSITIVE Antibody Screen NEGATIVE Hct 32.9 % (37-47) L Hgb 10.5 g/dL (12.0-15.0) L C.trachomatis DNA (PCR) Negative (Negative) Glucose 1 Hr 50 gm 105 mg/dL (70-140) Miscellaneous Test Assessment & Plan (1) SROM (spontaneous rupture of membranes): PLAN: Patient presents for AOL for SROM, plan management for with cytotec/FB/pitocin. Pain management: desires natural. GBS negative. Management of any complications: none I have reviewed the [facility] and made any clinically relevant updates. (2) Supervision of with history of infertility: COMMENT: PRR STEVEN 08/21/20 surprise Noé (3) : QUALIFIERS: Weeks of gestation: 40 weeks Qualified Code(s): Z3A.40 - 40 weeks gestation of COMMENT: nl genetics. AFP-negative. carrier negative. NL anatomy. GBS negative (4) Conceived by in vitro fertilization: COMMENT: NEHEMIAS RGI. 5 years infertility. preimplantation genetics nl. echo- NL 04/22/20; NL growth 06/19/20 (5) Anxiety during : COMMENT: yaooft in past. counseling. Other support options given, 2/2 declines Rx (6) History of tetanus, diphtheria, and acellular pertussis booster vaccination (Tdap): COMMENT: 05/30/20
[2020-08-22] MEDS: Lactated Ringers 1,000 ML 200 ML IV ×3 (13:12→23:55)
[2020-08-22] MEDS: Lactated Ringers 500 ML 999 ML IV ×2 (13:14→15:37)
[2020-08-22] MEDS: Oxytocin 30 units/NS 500 ml 30 UNITS/500 ML IV.SOLN IV (13:44)
[2020-08-22] MEDS: fentaNYL-bupivacaine (epidural) 100 ML BAG EPIDURAL ×3 (14:25→23:26)
[2020-08-22] MEDS: Mag Hydrox/Al Hydrox/Simeth 30 ML UDC PO ×2 (16:32→20:42)
[2020-08-22] MEDS: Ondansetron 4 MG/2 ML Vial IV (22:53)
[2020-08-22] MEDS: 0.9% Saline Lock 10 ML Syringe IV (22:54)
[2020-08-23] VITALS (33 sets, daily range): BP systolic 93–131; BP diastolic 54–92; PULSE 91–149; RESP 16–22; TEMP 36.4–37.7; O2SAT 94–100
--- NOTE | 2020-08-23 01:00 | PN_ITS ---
Progress Note Called to bedside to to severe anxiety. Patient requesting at this time. Reports that she does not know how she can do this any longer. Patient began crying due to severity of anxiety. Reports that she is uncomfortable and nauseous and is becoming exhausted. Cervix most recently 5.5 cm at 2300. Cervix is unchanged on my exam. Discussed with patient that at this point she is still in latent labor, but has made cervical change consistently throughout her labor course. Patient was initially hesitant to increase Pitocin per Pit ocin protocol up until 8 PM and now does have IUPC in place with borderline adequate [place] units of around 190. Discussed with patient that we can try giving a dose of IV Benadryl to try to help her relax and hopefully get some rest. Patient and her discussed plan and are agreeable to continued expectant management with increasing Pitocin if necessary. Patient does not want to allow for a significantly longer time to see if she will make further progress. Discussed that if she has not made significant progress 6 hours after she last made cervical change and she still wishes to proceed with , it would be reasonable to consider this at that time. We will plan to administer Benadryl and recheck patient at 0500.
[2020-08-23] MEDS: DiphenhydrAMINE 50 MG/ML Syringe 25 MG IV (01:11)
[2020-08-23] MEDS: proCHLORPERazine 10 MG/2 ML Vial IV (01:12)
[2020-08-23] MEDS: 0.9% Saline Lock 10 ML Syringe IV ×5 (01:12→18:59)
[2020-08-23] MEDS: Lactated Ringers 1,000 ML 100 ML IV (01:15)
[2020-08-23] MEDS: fentaNYL-bupivacaine (epidural) 100 ML BAG EPIDURAL (04:05)
[2020-08-23] MEDS: Ondansetron 4 MG/2 ML Vial IV (05:43)
[2020-08-23] MEDS: Sodium Citrate/Citric Acid 30 ML UDC PO (05:43)
--- NOTE | 2020-08-23 05:55 | PCM.PN.BLA ---
Progress Note Notified by RN that patient cervical exam is unchanged at this time (last exam 5.5 cm current exam 6cm). Patient reports exhausted and willing to continue with labor at this time. Patient requesting . Patient started becoming increasingly tachycardic 40s with heart rate baseline now 160s. Decision made to proceed with primary . The risks, benefits, indications, and alternatives to the procedure were discussed with the patient including bleeding, infection, and visceral or vascular injury. Voiced understanding and agreed to proceed.
--- NOTE | 2020-08-23 05:57 | OP.PCM_ITS ---
Assessment & Plan (1) SROM (spontaneous rupture of membranes): (2) Supervision of with history of infertility: COMMENT: PRR STEVEN 08/21/20 surprise Noé (3) : QUALIFIERS: Weeks of gestation: 40 weeks Qualified Code(s): Z3A.4 0 - 40 weeks gestation of COMMENT: nl genetics. AFP-negative. carrier negative. NL anatomy. GBS negative (4) Conceived by in vitro fertilization: COMMENT: [facility]GI. 5 years infertility. preimplantation genetics nl. echo- NL 04/22/20; NL growth 06/19/20 (5) Anxiety during : COMMENT: zoloft in past. counseling. Other support options given, 2/2 declines Rx (6) History of tetanus, diphtheria, and acellular pertussis booster vaccination (Tdap): COMMENT: 05/30/20 (7) 33 weeks gestation of : COMMENT: COVID test ordered 06/02/20 (scheduled 08/21/20 at 1330 HG) (8) delivery delivered: Maternal Data Information STEVEN Calculator Estimated Delivery Date Method Current WG Current Estimate 08/21/20 Manual 40w 2d Details Operative Information Date of Procedure: 08/23/20 Pre-Operative Diagnosis: Term , spontaneous rupture of membranes, failure to progress Post-Operative Diagnosis: Same Indications for : Failure to Progress Indications Narrative: 34-year-old G1, P0 at 40 weeks gestation admitted for spontaneous rupture of membranes on the evening of 08/21. Patient was augmented with Cytotec followed by Arenas bulb and Pitocin. Once Arenas bulb was out, patient made very slow cervical change from 4 to 6 cm. Patient was originally called 5-1/2 cm at 2300 and began feeling extremely exhausted. Repeat exam at 0500 was 6 cm. Expectant management versus were discussed with the patient strongly desired to exhaustion prolonged labor. The risks, benefits, indications, and alternatives to the procedure were discussed with the patient including bleeding, action, and visceral or vascular injury. Patient voiced understanding and agreed to Classification: DRAGAN Procedure Type: low transverse statistical consultant #1: Emily Medina Type of Anesthesia: Epidural Antibiotic Given: Ancef 2 grams IV x1 and Zithromax 500 mg/5 mL X1 Findings Description of Procedure: The patient is a G1, P0 at 40 weeks gestation who presented for primary . Spinal anesthesia was placed without difficulty. Arenas catheter was placed. The patient was placed in the dorsal supine position with leftward tilt. Patient was prepped and draped in the normal sterile fashion. Pfannenstiel skin incision was made with the scalpel and carried through to the underlying layer of fascia with the scalpel. Fascia was nicked in the midline and the incision extended laterally. The rectus bellies were dissected off superiorly and inferiorly with out complication both sharply and bluntly. The peritoneum was entered digitally. The incision was stretched and a low transverse uterine incision was made with the scalpel. The 's head was delivered atraumatically followed by the anterior and posterior shoulders without complication the rest of the infant delivered. The cord was clamped and cut and the was handed off to awaiting nurse. The placenta was delivered spontaneously immediately following and was noted to be intact and have a three-vessel cord. The uterus was exteriorized cleared of all clots and debris, and the incision was closed in a double layer closure using #1 Monocryl. The ovaries and fallopian tubes were noted to be within normal limits. The uterus was returned to the maternal abdomen and gutters were cleared of all clots and debris. The peritoneum was closed with 3-0 Monocryl in a running fashion. Gloves were changed prior to fascial closure. Fascia was closed with 0 PDS in a running fashion. Subcutaneous tissue was copiously irrigated and the skin was closed with 3-0 Monocryl in a subcuticular fashion. Mepilex dressing was applied without complication. Patient was taken to recovery in stable condition. Presentation: Positive for Vertex Amniotic Membrane Rupture Type: Spontaneous Amniotic Fluid Description: Lightly stained meconium Placental Delivery Description: Expressed Placenta Disposition: [facility] Cord Vessel Description: 3 Vessels Cord Entanglement: None Cord Gases: ABG and VBG Infant A Gender: Female (1 minute): 8 (5 minute): 9 Delayed Cord Clamping: No Complications Risks of Surgery Discussed w/Patient: Bleeding, Anesthesia Risks, Infection and Injury to surrounding structure(s) including bowel and bladder Complications: None Procedures Urinary/Genital [id number]: [id number] Delivery [facility]
[2020-08-23] MEDS: Cefazolin 2 GM in 0.9% Normal Saline 100 ML IV (05:58)
--- NOTE | 2020-08-23 06:16 | PLAC_PTH ---
PATIENT: JENARO KASPER LOC: [facility] U#:[id number] AGE/SX: 34/F ROOM: WP006 RE08/21/[address]: Dr. Alycia Ennis MD : 1985 BED: 1 DIS: 08/24/2020 SPEC #: [id number] RECD: 08/23/20 08:55 STATUS: NARAYAN ZULUAGAMartha #: [id number] MICHAEL: 08/23/20 06:[address]: Alycia Ennis DEPT: SURGICAL PATHOLOGY RECD BY: Eugenia Avalos ENTERED: 08/23/20 09:26 SP TYPE: PLACENTA OTHR DR: No Primary Care Phys Tissues: Placenta, NOS Procedures: Surgery Specimen Level V HEADER OPERATION: Primary section PRE-OP DIAGNOSIS: Rupture of membranes TISSUE SUBMITTED: Placenta MICROSCOPIC DIAGNOSIS Reynoso placenta (765 gm): Umbilical cord ? trivascular with acute funisitis. Placental membranes ? acute chorioamnionitis. Pigmented macrophages suggestive of meconium staining. Placental disc ? acute vasculitis of superficial vessels, Petrona-Gama change, intervillous congestion and increased intraparenchymal microcalcifications. AM:christian 08/27/2020 MICROSCOPIC DESCRIPTION Slides are reviewed. GROSS DESCRIPTION SPECIMEN: PLACENTA / CLINICAL INFORMATION: A. Weight: 4.135 kg B. Gestational Age: 40 weeks C. Sex: Female PLACENTAL WEIGHT (POST FIXATION): 765 gm PLACENTAL DIMENSIONS: 19 x 18 x 4 cm PLACENTAL SHAPE: Usual ovoid PLACENTAL WEIGHT FOR GESTATIONAL AGE: Over 99th percentile MEMBRANES - Present A. Insertion: Marginal B. Site of rupture from edge: 4 cm from edge of placental disc C. Color of membrane: Greenish, mucoidy consistent with meconium staining. D. Abnormalities: None UMBILICAL CORD - Present A. Color: Garcia-santillan B. Insertion: Paracentral C. Length: 38 cm D. Diameter: 1.2 cm E. Number of vessels: Three F. Abnormalities: None PLACENTAL DISC - Present A. Color of surface: Garcia-santillan B. surface abnormalities: None C. Maternal cotyledons: Intact with minimal tears D. Attached retro placental clot: No clot E. Cut surface: Dark red and spongy F. Lesions: Sections reveal an ill-defined, garcia, indurated area measuring 1.5 cm in greatest dimension. G. Separate clot: Absent SECTIONS SUBMITTED: 1. Membrane roll 2. Cord, maternal end 3. Cord, end 4. Placental disc, and maternal surfaces 5. Placental disc, and maternal surfaces, lesion 6. Placental disc, and maternal surfaces NA:christian 08/26/20 TC:2 CPT: 05363
--- NOTE | 2020-08-23 06:52 | PCM.DC ---
Discharge Instructions Diet Discharge Diet: No restrictions Activity May resume sexual activity in: 4-6 weeks Lifting Restrictions: 20 lbs Additional Activity Instructions:: Nothing in the vagina for 4-6 weeks. You may return to work/school in 6 weeks. Dressing / Incision Call your doctor if your incision/area has: Continuous Slow Oozing, Sudden Increased Bleeding, Increased Pain/ Swelling, Increased Redness and Foul Smelling Discharge Call your doctor if you observe: Fever of 101 or Higher Suture Line Care: Avoid Pulling/Pushing and Avoid Pinching/Bending Follow Up Care When: Call to make an appointment with your doctor for an incision check in 1-2 weeks. You will also need a 6 week post- follow up appointment. Test Results: Test results from this visit will be discussed in further detail at your follow-up appointment, if applicable. Discharge Plan Admission Admit Date/Time: 08/21/20 21:30 Primary Reason for Your Visit: Rupture of membranes Attending Provider: Alycia Ennis Primary Care Provider: Rufina Mcdonnell Primary Instructions Patient Instructions: After a Discharge Orders/Prescriptions Prescriptions: New naproxen 250 MG tablet 250 - 500 mg PO Q8H PRN PRN (Reason: MILD PAIN) Qty: 30 RF: 1 oxycodone 5 mg capsule 5 mg PO Q6H PRN (Reason: pain) 7 Days Qty: 15 RF: 0 Continued vit 67-iron ps 29 mg iron-folate no.1 1 mg-dha 200 mg capsule 29 mg iron- 1 mg-200 mg capsule 1 cap PO DAILY Qty: 30 RF: 6 (DME) breast pump Device See Rx Instructions .ROUTE .MEDSUPPLY Qty: 1 RF: 0 (DME) miscellaneous medical supply Misc See Rx Instructions .ROUTE .MEDSUPPLY Qty: 1 RF: 0 Referrals / Follow Up: Care Physician,No Primary [Primary Care Provider] -
--- NOTE | 2020-08-23 07:02 | NURSING ---
+2 pitting edema in BLLE. Nonpitting edema in BLUE.
[2020-08-23] MEDS: Ketorolac 30 MG/ML Syringe IV ×3 (07:26→18:59)
[2020-08-23] MEDS: Acetaminophen 500 MG Tablet 1000 MG PO ×3 (07:27→18:59)
[2020-08-23] MEDS: Oxytocin 30 units/NS 500 ml 30 UNITS/500 ML IV.SOLN 167 UNITS IV (07:40)
[2020-08-23 08:56] LABS: Pathology Specimen OB SEE PATHOLOGY REPORT
[2020-08-23] MEDS: Senna/Docusate Sodium 1 Tablet PO (11:05)
[2020-08-23] MEDS: Enoxaparin 40 MG/0.4 ML Syringe SC (18:11)
[2020-08-24] MEDS: Acetaminophen 500 MG Tablet 1000 MG PO ×3 (00:52→14:10)
[2020-08-24] MEDS: Ketorolac 30 MG/ML Syringe IV (00:52)
[2020-08-24 03:30] VITALS: BP 109/69; PULSE 94; RESP 18; TEMP 36.4
[2020-08-24 05:45] LABS: Hematocrit 27.6 % (37-47); Hemoglobin 8.6 g/dL (12.0-15.0); Mean Corp Hgb Conc 31.2 g/dL (32-36); Mean Corpuscular Hgb 26.7 pg (27.0-32.0); Mean Corpuscular Volume 85.7 fL (81-99); Mean Platelet Vol. 10.1 fl (6.2-12.0); Platelet Count 199 K/mm3 (150-450); RBC Distribution Width CV 14.9 % (11.6-14.6); RBC Distribution Width SD 46.5 fl (35.1-43.9); Red Blood Count 3.22 M/mm3 (4.2-5.4); White Blood Count 14.7 K/mm3 (4.4-11.0)
[2020-08-24] MEDS: Naproxen 500 MG Tablet PO ×2 (08:24→17:07)
[2020-08-24 08:52] VITALS: BP 106/64; PULSE 100; RESP 16; TEMP 36.7; O2SAT 98
--- NOTE | 2020-08-24 10:15 | PCM.PN.OB ---
Subjective Subjective Patient doing well without complaints. Tolerating PO. Ambulating and voiding without difficulty. feeding well. Denies chest pain, shortness of breath, calf pain/swelling, fevers, chills, lightheadedness. Objective Data Objective Data Vital Signs: Vital Signs Temp Pulse Resp BP Pulse Ox 98.1 F 100 16 106/64 98 08/24/20 08:52 08/24/20 08:52 08/24/20 08:52 08/24/20 08:52 08/24/20 08:52 Oxygen Delivery Method Room Air Weight: 202 lb 3.2 oz Body Mass Index (BMI) 35.8 Intake & Output: Intake and Output for Last 24 Hours 08/22/20 08/23/20 08/24/20 23:59 23:59 23:59 Intake Total 4036.31 / 4036.31 4429.80 / 4429.80 Output Total 750 / 750 2100 / 2100 Balance 3286.31 / 3286.31 2329.80 / 2329.80 Lab / Micro Data Result Diagrams: 08/24/20 05:39 08/21/20 21:45 Labs: Laboratory Results - last 24 hr 08/24/20 05:39 WBC 14.7 H RBC 3.22 L Hgb 8.6 L Hct 27.6 L MCV 85.7 MCH 26.7 L MCHC 31.2 L RDW Std Deviation 46.5 H RDW Coeff of Rony 14.9 H Plt Count 199 MPV 10.1 ROS Constitutional Constitutional: Reports systems reviewed and no addt'l complaints, except as documented Cardiovascular Cardiovascular: Reports systems reviewed and no addt'l complaints, except as documented Respiratory/Chest Respiratory/Chest: Reports systems reviewed and no addt'l complaints, except as documented Gastrointestinal Gastrointestinal: Reports systems reviewed and no addt'l complaints, except as documented Physical Exam Const alert, oriented x3 and no apparent distress HEENT Head and Scalp: atraumatic Resp normal respiratory effort GI soft to palpation and non-tender Inspection: incision intact, healing well and drainage (none) Bimanual Exam - Vag & Uterus: uterus non-tender Uterus Palpation: uterus fundus firm (below Umbilicus) Assessment & Plan (1) delivery delivered: PLAN: s/p LTCS PPD # 1 1. routine post care 2. breast feeding- support given 3. rh positive 4. rubella immune
[2020-08-24] MEDS: Senna/Docusate Sodium 1 Tablet PO (14:13)
[2020-08-24] MEDS: Calcium Carbonate 500 MG Tablet PO (14:35)
[2020-08-24 14:36] VITALS: BP 100/70; PULSE 103; RESP 18; TEMP 36.6; O2SAT 98
== END 2020-08-24 18:30 | disposition home or self-care (01) | DRG 788 ==
LOC: WPOUT 21:33 → WP 21:33
PROVIDERS: Admitting Provider Obstetrics & Gynecology; Referring Provider Obstetrics & Gynecology; Visit Provider Obstetrics & Gynecology
DX: O75.81 Maternal exhaustion complicating labor and delivery (principal); O62.2 Other uterine inertia; O77.0 Labor and delivery complicated by meconium in amniotic fluid; O63.9 Long labor, unspecified; O99.344 Other mental disorders complicating childbirth; F41.9 Anxiety disorder, unspecified; Z3A.40 40 weeks gestation of pregnancy; Z37.0 Single live birth; Z92.29 Personal history of other drug therapy; Z90.49 Acquired absence of other specified parts of digestive tract; Z80.0 Family history of malignant neoplasm of digestive organs; Z85.72 Personal history of non-Hodgkin lymphomas
CPT/HCPCS: 59025; 59050; 82565; 82570; 84112; 84156; 84450; 84460; 84550; 85025; 85027; 86850; 86900; 86901; 88307; 99218; J7120; A4216; G0378; J2405; J3490

== ENCOUNTER → 2020-09-04 20:45 | Outpatient (CLI) | payer OTHER, SELFPAY ==
[2020-08-21 20:41] VITALS: BMI 35.8
== END ==
PROVIDERS: Referring Provider Obstetrics & Gynecology; Visit Provider Obstetrics & Gynecology
DX: Z39.1 Encounter for care and examination of lactating mother (principal)
CPT/HCPCS: 96158

== ENCOUNTER → 2020-10-07 | Outpatient (CLI) | payer OTHER, SELFPAY ==
[2020-10-07 11:13] VITALS: BMI 35.8
[2020-10-09 14:41] LABS: HPV APTIMA, High Risk Negative (Negative)
== END | disposition home or self-care (01) ==
PROVIDERS: Referring Provider Obstetrics & Gynecology; Visit Provider Obstetrics & Gynecology
DX: Z12.4 Encounter for screening for malignant neoplasm of cervix (principal)
CPT/HCPCS: 87624; 88175; G0145

== ENCOUNTER → 2020-11-29 14:09 | Outpatient (CLI) | payer OTHER, SELFPAY ==
[2020-11-29 14:29] LABS: Absolute Lymphocyte Count 2.48 X10^3/uL (0.83-4.51); Basophil# 0.02 X10^3/uL; Basophil% 0.4 % (0-1); Eosinophil# 0.12 X10^3/uL; Eosinophils% 2.5 % (0-5); Hematocrit 40.5 % (37-47); Hemoglobin 12.7 g/dL (12.0-15.0); Lymphocyte # 2.48 X10^3/ul (0.83-4.51); Lymphocyte % 50.7 % (19-41); Mean Corp Hgb Conc 31.4 g/dL (32-36); Mean Corpuscular Volume 89.4 fL (81-99); Mean Platelet Vol. 10.2 fl (6.2-12.0); Monocyte# 0.31 X10^3/uL; Monocyte% 6.3 % (0-10); NRBC Flagged by Analyzer 0 % (0-5); Neutrophil # 1.95 X10^3/uL (2.7-7.7); Neutrophil % 39.9 % (47-70); Platelet Count 204 K/mm3 (150-450); RBC Distribution Width CV 14.2 % (11.6-14.6); RBC Distribution Width SD 45.9 fl (35.1-43.9); Red Blood Count 4.53 M/mm3 (4.2-5.4); White Blood Count 4.9 K/mm3 (4.4-11.0)
== END ==
PROVIDERS: Referring Provider Obstetrics & Gynecology; Visit Provider Obstetrics & Gynecology
DX: R42 Dizziness and giddiness (principal)
CPT/HCPCS: 36415; 84443; 85025

== ENCOUNTER → 2021-02-27 20:30 | Outpatient (CLI) | payer OTHER, SELFPAY | PROVIDERS: Referring Provider Obstetrics & Gynecology; Visit Provider Obstetrics & Gynecology | DX: Z39.1 Encounter for care and examination of lactating mother (principal) | CPT/HCPCS: 96158 ==